=== PATIENT | female | born 1960 | race Caucasian/White ===

== ENCOUNTER → 2017-03-01 17:12 | Outpatient (CLI) | payer OTHER ==
[2016-02-01 09:00] VITALS: BMI 27.7
[~2017-03-01 17:12] MED LIST: AMBIEN10 MG PO; CYTOMEL25 MCG PO; NORCO 5/325 TAB1 TA1 PO; PAROXETINE HCL10 MG PO; PREVACID30 MG PO; SINGULAIR10 MG PO; SYNTHROID75 MCG PO; ZEBETA5 MG PO
== END | disposition home or self-care (01) ==
LOC: D.MAMMO 11:00
DX: Z12.31 Encounter for screening mammogram for malignant neoplasm of breast (principal)

== ENCOUNTER 2019-06-19 09:00 | Outpatient (CLI) | payer OTHER ==
[2016-02-01 09:00] VITALS: BMI 27.7
== END 2019-06-19 09:30 | disposition home or self-care (01) ==
LOC: D.MAMMO 09:00
PROVIDERS: ATTEND Family Medicine
DX: Z12.31 Encounter for screening mammogram for malignant neoplasm of breast (principal)

== ENCOUNTER 2020-06-21 15:00 | Outpatient (CLI) | payer OTHER ==
[2016-02-01 09:00] VITALS: BMI 27.7
== END 2020-06-21 23:59 | disposition home or self-care (01) ==
LOC: D.MAMMO 15:00
PROVIDERS: ATTEND Family Medicine
DX: Z12.31 Encounter for screening mammogram for malignant neoplasm of breast (principal)

== ENCOUNTER 2020-08-31 09:21 | Day surgery (SDC) | payer OTHER ==
[~2020-08-31] VITALS: Ht 162.6 cm; Wt 75.0 kg
[2020-08-31 09:43] LABS: BASOPHILS 0.3 % (0-2); EOSINOPHILS 1.9 % (0-7); HEMATOCRIT 38.5 % (36.0-48.0); HEMOGLOBIN 12.6 g/dL (12-16); IMMATURE GRANULOCYTES 0.1 % (0-5); LYMPHOCYTES 46.3 % (15-50); MCH 30.9 pg (26.0-34.0); MCHC 32.7 g/dL (31.0-37.0); MCV 94.4 fL (80.0-100.0); MEAN PLATELET VOLUME 9.3 fL (7.4-10.4); MONOCYTES 10.3 % (2-11); NEUTROPHILS 41.1 % (40-80); PLATELET COUNT 287 10x3/uL (130-400); RBC 4.08 10x6/uL (4.00-5.40); RDW 12.8 % (11.5-14.5); WBC 7.5 10x3/uL (4.8-10.8)
[2020-08-31 09:55] LABS: CALC OSMOLALITY 283 mosm/kg (275-300); CALCIUM 9.3 mg/dL (8.5-10.1); CARBON DIOXIDE 26.8 mmol/L (21.0-32.0); CHLORIDE - SERUM 107 mmol/L (98-107); CREATININE - SERUM 0.7 mg/dL (0.6-1.3); GLUCOSE 96 mg/dL (74-106); POTASSIUM - SERUM 4.2 mmol/L (3.5-5.1); SODIUM 143 mmol/L (136-145); UREA NITROGEN 11 mg/dL (7-18); eGFR NON AFRICAN AMERICAN 90 mL/min (90-120)
[2020-08-31] MEDS ORDERED: PROZAC20 MG PO (10:37)
[2020-08-31] MEDS ORDERED: EVENING PRIMROSE (10:39)
[2020-08-31] MEDS ORDERED: VITAMIN D (10:40)
[2020-08-31 10:47] VITALS: BP 136/68; Ht 162.6 cm; Wt 75.0 kg
--- NOTE | 2020-08-31 15:04 | NUR ---
1443 DRESSED, AWAKE & ALERT. GIVEN D/C INFORMATION INCLUDING: MED REC, SHEET LISTING NSAIDS TO AVOID & [facility] POST ENDOSCOPY D/C INSTRUCTIONS. PT VOICED UNDERSTANDING. TO PRIVATE CAR PER STAFF. HOME WITH FRIEND. Ellie SOSA R.N.
--- NOTE | 2020-08-31 17:13 | HP ---
PATIENT: ANGELO GARCÍA MEDICAL RECORD: [id number] ACCOUNT: [id number] LOCATION:D.OPS : 60 ADMISSION DATE: 08/31/20 PCP: APRIL MIRANDA DO HISTORY AND PHYSICAL EXAMINATION CHIEF COMPLAINT: Here for endoscopy. HISTORY OF PRESENT ILLNESS: The patient has a history of colon polyps. Also, history of dysphagia. She has had recurrent dysphagia as well as odynophagia. Back in 2015, she had what I felt was a worrisome polyp that was a 1.2 cm polyp near the anorectal junction. Also, history of Pate's esophagus in need of surveillance. She has noted no rectal bleeding. She does have a family history of colon cancer and that 2 brothers had colon cancer. PAST MEDICAL AND SURGICAL HISTORY: Hypertension, hypothyroidism on replacement therapy. Recurrent dysphagia, history of EGDs and colonoscopies, history of breast reduction, history of orthopedic surgery to the right lower extremity, history of hysterectomy, history of laparoscopic cholecystectomy. PHYSICAL EXAMINATION: GENERAL: The patient does not appear acutely ill. She does not appear chronically ill. VITAL SIGNS: Reviewed. EARS: External ears appear normal. EYES: Extraocular movements are intact. NECK: Trachea is midline. CHEST: No intercostal retractions. PULMONARY: Nonlabored. No stridor. MEDICATIONS: Please see the nursing list. ALLERGIES: PENICILLIN, ISONIAZID WELL RIFAMPIN. SOCIAL HISTORY: She is a smoker. IMPRESSION: 1. Pate's esophagus. 2. Recurrent dysphagia and odynophagia. 3. Family history of colon cancer 4. History of colon polyps in need of surveillance colonoscopy. PLAN: EGD, esophageal dilation, colonoscopy. TRANSINT:[id number] Voice Confirmation ID: [id number] DOCUMENT ID: [id number] HISTORY AND PHYSICAL [id number] ANGELO GARCÍA BRIGITTE LEVIN MD at 1713 CC: APRIL MIRANDA DO [id number] DICTATION DATE: 08/31/20 1246 [employer]: 08/31/20 1521 [facility] 08/31/20 [address] [place] [address]
--- NOTE | 2020-09-01 16:10 | OP ---
PATIENT NAME: ANGELO GARCÍA MEDICAL RECORD: [id number] :60 LOCATION:D.OPS ADMISSION DATE: SURGEON: ELAN ARMANDO MD DATE OF OPERATION: 08/31/2020 PRINCIPAL DIAGNOSES: 1. History of colon polyps. 2. Gastroesophageal reflux disease. 3. Recurrent dysphagia and odynophagia. 4. Pate's esophagus. 5. Family history of colon cancer. POSTOPERATIVE DIAGNOSES: 1. History of colon polyps. 2. Gastroesophageal reflux disease. 3. Recurrent dysphagia and odynophagia. 4. Pate's esophagus. 5. Family history of colon cancer. 6. No evidence of persistent or recurrent Pate's. 7. Three polyps; 1 was an anorectal polyp next to a scar and this is a recurrent polyp, another one is a questionable polyp, it was sessile and was a 1.2 cm polyp, and the third was a polyp and it was a 5 mm polyp. PROCEDURES: 1. Esophagogastroduodenoscopy with antral biopsies. 2. Esophageal dilation to 60-Sudanese through the catheter balloon. 3. Total colonoscopy to cecum. 4. Hot biopsy forceps polypectomies times 3. SURGEON: Elan Armando MD CONCRETE CONVEYOR OPERATOR: None. BLOOD LOSS: Minimal. ANESTHESIA: IV sedation. COMPLICATIONS: None. The risks and possible complications and alternatives of the procedure were explained to the patient. She elected to proceed. ENDOSCOPIC COURSE: The patient was conveyed to the endoscopy suite electively on 08/31/2020. IV sedation was induced by the anesthesia staff. A bite block was placed. Gastroscope was advanced into the esophagus. It was then advanced through the stomach into the duodenum. Upon withdrawal, retroflexed and angulus views were obtained. Antral biopsies were obtained to rule out H. pylori. I then withdrew into the cardia of the stomach. I advanced through the catheter balloon. I then sequentially dilated the entire length of the esophagus to 60-Sudanese. The gastroscope was then readvanced. There had been no evidence of false passage or perforation. The patient was turned 180 degrees and placed in the Hall position. A digital rectal examination was performed. A colonoscope was inserted through the anus. It was easily advanced to the cecum. The prep was adequate. I slowly withdrew OPERATIVE REPORT [id number] ANGELO GARCÍA the endoscope. I dragged the folds. The pullback was greater than 20-minute pullback. A retroflexed view was obtained in the rectum. This is when I saw the scar from the prior polypectomy as well as the recurrent polyp right next to it. This polyp was removed. I then unretroflexed the scope and removed it under direct vision. I will plan for her next colonoscopy to take place in 3 years. TRANSINT:[id number] Voice Confirmation ID: [id number] DOCUMENT ID: [id number] ELAN ARMANDO MD at 1610 CC: APRIL MIRANDA DO [id number] DICTATION DATE: 08/31/20 1402 MANAGER OF CONSTRUCTION: 08/31/20 2336 [facility] 08/31/20 [facility] [address] [place] [address]
== END 2020-08-31 14:43 | disposition home or self-care (01) ==
LOC: D.OPS 09:21
PROVIDERS: Anesthesiology; ATTEND Surgery
DX: Z86.010 Personal history of colon polyps (principal); K21.9 Gastro-esophageal reflux disease without esophagitis; R13.19 Other dysphagia; K22.70 Barrett's esophagus without dysplasia; Z80.0 Family history of malignant neoplasm of digestive organs; K63.5 Polyp of colon